=== PATIENT | male | born 1975 | race Two or more races ===

== ENCOUNTER 2021-01-20 02:22 | Emergency (ER) | payer MEDICAID, OTHER ==
[~2021-01-20] VITALS: Ht 167.6 cm; Wt 88.5 kg
[2021-01-20 02:22] VITALS: BP 111/80
[2021-01-20] MEDS ORDERED: ALBUTEROL SULF 2.5 MG/0.5ML(0.5%) NEB SOLN NEB ONE (02:30)
[2021-01-20] MEDS ORDERED: IPRATROPIUM BROM 0.5 MG/2.5ML INH SOL NEB ONE (02:30)
== END 2021-01-20 05:17 | disposition left against medical advice (07) ==
LOC: ER 02:22
DX: R06.02 Shortness of breath (principal); Z53.21 Procedure and treatment not carried out due to patient leaving prior to being seen by health care provider
CPT/HCPCS: 71045; 94640; J7644